=== PATIENT | male | born 1980 | race Caucasian/White ===

== ENCOUNTER 2023-08-10 08:39 | Observation (INO) | payer OTHER, SELFPAY ==
[2023-08-10] VITALS (12 sets, daily range): BP systolic 122–162; BP diastolic 66–102; PULSE 64–82; RESP 12–18; TEMP 36.3–36.8; O2SAT 92–99; BMI 46.2; BMI 48.4
--- NOTE | 2023-08-10 08:45 | EDS_ITS ---
HPI History of Present Illness Chief Complaint: Abd Pain PFSH PFSH Home Medications acetaminophen 500 mg capsule 1,000 mg PO Q6H PRN fever 08/10/23 [History Last Taken 08/10/23] magnesium 250 mg tablet 250 mg PO DAILY 08/10/23 [History Last Taken 08/10/23] multivitamin (Daily Multi-Vitamin tablet) 1 tab PO DAILY 08/10/23 [History Last Taken 08/10/23] Allergy/AdvReac Type Severity Reaction Status Date / Time No Known Allergies Allergy Verified 08/10/23 08:43 Surgical History no surgical history Social History Smoking Status: Unknown if ever smoked EXAM Physical Exam Const Vital Signs: 08/10/23 08:41 08/10/23 11:11 08/10/23 13:19 Temperature 98.1 F 97.5 F L Temperature Source Temporal Temporal Pulse Rate 65 68 Respiratory Rate 15 16 18 Blood Pressure 162/102 H 131/74 H Blood Pressure Mean 122 93 Blood Pressure Source Monitor Blood Pressure Position Semi-Fowlers Blood Pressure Location Right Arm Pulse Ox 99 98 Oxygen Delivery Method Room Air Room Air MDM MDM MDM Narrative Medical decision making narrative: HISTORY OF PRESENT ILLNESS: 43-year-old male here with left side abdominal pain/flank pain that began at 2 AM approximately 7 hours prior to arrival. Notes pain is located in right upper quadrant. Denies history abdominal surgeries. No nausea no vomiting is not worse with food. Denies changes of bowel habits denies change in urinary habits. Denies any cough chest pain or shortness of breath REVIEW OF SYSTEMS: Pertinent positives: Abdominal pain, flank pain Pertinent negatives: Chest pain, shortness of PHYSICAL EXAM: Nursing triage notes reviewed, Vital signs reviewed Constitutional: please see mdm HENT: MMM Eyes: Pupils equal round and reactive to light, Extraocular muscles intact Neck: No stridor, no JVD, full neck ROM Lungs: Clear to auscultation, No wheezing or rales. No increased work of breathing, no conversational dyspnea, no accessory muscle use, no nasal flaring. No respiratory distress noted Heart: Regular rate and rhythm, No murmurs, No rubs and No gallops, 2+ distal pulses (radial, femoral, posterior tibial) in all extremities Abdomen: Soft, right upper quadrant tenderness, positive Menjivar sign but no rigidity, rebound or guarding, no obvious peritoneal signs, no palpable pulsatile abdominal masses, no auscultated abdominal bruit : No CVAT Extremities: No edema Neuro: No focal neurological deficits, cranial nerves II through XII intact, 5/5 strength in all extremities. Intact sensation to light touch in all extremities, 2+ reflexes bilateral patella tendons. Normal gait. No ataxia. Skin: No rash or lesions noted MEDICAL DECISION MAKING: Chief Complaint: Abdominal pain, flank pain External records reviewed: Imaging reviewed: No recent advanced imaging of the abdomen or pelvis Factors affecting care: none Social determinants of health: none History obtained from others: none Consults: General surgery [facility] Narrative: Patient was hemodynamically stable, afebrile, nontoxic-appearing. Exam with right upper quadrant TTP, possible Menjivar sign. Concern for gallbladder etiology I considered the following differential diagnosis: Acute cholecystitis nephrolithiasis, pyelonephritis, AAA, diverticulitis ALL IMAGES (IF OBTAINED) HAVE BEEN PERSONALLY REVIEWED AND INTERPRETED BY MYSELF. CBC with leukocytosis suggestive of systemic inflammation, no significant anemia or thrombocytopenia noted BMP without evidence of significant electrolyte abnormalities, no anion gap, no acute kidney injury. LFTs show no evidence of hepatobiliary pathology. Lipase is wnl indicating no pancreatic inflammation. Urinalysis shows no evidence of urinary inflammation suggestive of UTI Right upper quadrant ultrasound shows evidence of large gallstone in the biliary tree. I consulted general surgery spoke to Dr. Ritter who recommended emergent surgery he further recommended given Zosyn, obtaining x-ray EKG for preop clearance.. The patient and/or family, caregivers express understanding. The patient and/or family, caregivers agrees with the plan. Shared decision making: I will have a discussion with the patient and or visitors regarding risk/ benefits of further testing or admission. They will be made aware of of the risk/benefits inherent in this decision they will be given the opportunity to voice understanding. Total critical care time today provided was at least 0 minutes. This excludes separately billable procedures. Critical care time (if documented) is secondary to the patient having high probability of clinically significant/life threatening deterioration in the patient's condition which required my urgent intervention. Impression: 1. Right upper quadrant 2. Leukocytosis 3. Cholelithiasis Dispo: Admit to the OR Lab Data Labs: Laboratory Results - last 24 hr 08/10/23 08/10/23 09:23 11:15 WBC 12.4 H RBC 5.70 Hgb 15.3 Hct 48.7 MCV 85.4 MCH 26.8 L MCHC 31.4 L RDW Std Deviation 40.2 RDW Coeff of [place] 13.1 Plt Count 238 MPV 9.2 Immature Gran % (Auto) 0.400 Neut % (Auto) 85.8 H Lymph % (Auto) 9.7 L [place] % (Auto) 3.7 Eos % (Auto) 0.2 Baso % (Auto) 0.2 Absolute Neuts (auto) 10.6 H Absolute Lymphs (auto) 1.20 Nucleated RBC % 0 Sodium 137 Potassium 4.6 Chloride 105 Carbon Dioxide 25.0 Anion Gap 7 BUN 17 Creatinine 0.89 Estim Creat Clear Calc 126.99 Est GFR (MDRD) Af Amer 121 Est GFR (MDRD) Non-Af 100 BUN/Creatinine Ratio 19.1 Glucose 119 H Calcium 9.2 Total Bilirubin 0.40 Direct Bilirubin 0.12 AST 27 ALT 35 Alkaline Phosphatase 82 Total Protein 7.9 Albumin 3.6 Globulin 4.3 H Lipase 20 Urine Color Yellow Urine Clarity Clear Urine pH 6.5 Ur Specific [place] 1.015 Urine Protein Negative Urine Glucose (UA) Normal Urine Ketones Negative Urine Occult Blood Negative Urine Nitrite Negative Urine Bilirubin Negative Urine Urobilinogen Normal Ur Leukocyte Esterase Negative Urine RBC 0 SEEN Urine WBC 0 SEEN Ur Squamous Epith Cells 0-5 SEEN Urine Bacteria 0 SEEN Urine Mucus 0 SEEN Radiography Diagnostic Testing: Clinical Impression(s) from Imaging Studies Gallbladder Ultrasound 08/10/23 09:08 IMPRESSION: Cholelithiasis. 1. There is a single 2.65 cm moderate size stone in the neck of the gallbladder. No pericholecystic fluid is seen. Nuclear medicine HIDA scan can be obtained to evaluate for acute cholecystitis and ejection fraction. Electronically Signed: Tai Lui MD at 12:02 EST , Discharge Plan Disposition Disposition: Acute Care [facility]
--- NOTE | 2023-08-10 09:08 | US_ITS ---
STUDY: ABDOMINAL ULTRASOUND - RIGHT UPPER QUADRANT REASON FOR VISIT: Male, 43 years old Right upper quadrant abdominal pain TECHNIQUE: Ultrasound evaluation of the right upper quadrant was performed with real-time and static carbajal-scale imaging. TECHNICAL QUALITY: Adequate. COMPARISON: None. FINDINGS: Liver: The liver measures 17.7 cm. There is increased echogenicity consistent with fatty infiltration. The bile ducts are within normal limits. There is hepatic color flow. The direction of portal flow is hepatopetal. There is no demonstrated mass lesion. Gallbladder: Normal distended gallbladder. The gallbladder wall measures 3 mm. There is a single 2.65 cm moderate size stone in the neck of the gallbladder. No pericholecystic fluid is seen. Common Bile Duct (C.B.D.): The common bile duct measures 3 mm. Pancreas: Normal size of the head and body of the pancreas. The tail was not seen. There is normal echogenicity of the pancreas. There is no demonstrated pancreatic mass or cyst. Right Kidney: Normal size of the right kidney. The right kidney measures 12.3 x 6.3 x 5.3 cm. Normal renal cortex. The right cortex measures 2.4 cm. There is no demonstrated renal mass or cyst. There is no right hydronephrosis. US/Gallbladder IMPRESSION: Cholelithiasis. 1. There is a single 2.65 cm moderate size stone in the neck of the gallbladder. No pericholecystic fluid is seen. Nuclear medicine HIDA scan can be obtained to evaluate for acute cholecystitis and ejection fraction. Electronically Signed: Tai Lui MD at 12:02 EST ,
[2023-08-10 09:28] LABS: Absolute Neutrophil Count 10.6 X10^3/uL (2.0-7.7); Basophil# 0.03 X10^3/uL; Basophil% 0.2 % (0-1); Eosinophil# 0.02 X10^3/uL; Eosinophils% 0.2 % (0-5); Hematocrit 48.7 % (40-54); Hemoglobin 15.3 g/dL (13.0-16.5); Lymphocyte % 9.7 % (19-41); Mean Corp Hgb Conc 31.4 g/dL (32-36); Mean Corpuscular Hgb 26.8 pg (27.0-32.0); Mean Corpuscular Volume 85.4 fL (80-94); Mean Platelet Vol. 9.2 fl (6.2-12.0); Monocyte# 0.46 X10^3/uL; Monocyte% 3.7 % (0-10); NRBC Flagged by Analyzer 0 % (0-5); Neutrophil # 10.63 X10^3/uL (2.7-7.7); Neutrophil % 85.8 % (47-70); Platelet Count 238 K/mm3 (150-450); RBC Distribution Width CV 13.1 % (11.6-14.6); RBC Distribution Width SD 40.2 fl (35.1-43.9); White Blood Count 12.4 K/mm3 (4.4-11.0)
[2023-08-10] MEDS: Ketorolac 15 MG/ML Vial IV (09:38)
[2023-08-10] MEDS: 0.9% Normal Saline (1000mL) 1,000 ML 999 ML IV (09:38)
[2023-08-10] MEDS: Morphine 4 MG/ML Syringe IV (09:38)
[2023-08-10] MEDS: Ondansetron 4 MG/2 ML Vial IV (09:38)
[2023-08-10 09:44] LABS: AST(SGOT) 27 U/L (15-37); Alanine Aminotransfer ALT/SGPT 35 U/L (16-61); Albumin, Serum 3.6 g/dL (3.2-5.0); Alkaline Phosphatase 82 U/L (45-117); Anion Gap 7 (5-15); BUN 17 mg/dL (7-18); BUN/Creat Ratio 19.1 RATIO (10-20); Bilirubin, Direct 0.12 mg/dL (0.00-0.30); Calcium,Total 9.2 mg/dL (8.5-10.1); Chloride 105 mmol/L (98-107); Creatinine, Serum 0.89 mg/dL (0.70-1.30); EST Glomerular Filtration Rate 100 mL/min (>60); Est Glom Filt Rate - Afr Amer 121 mL/min (>60); Estimated Creatinine Clearance 126.99 ml/min; Globulin 4.3 g/dL (2.2-4.2); Glucose 119 mg/dL (74-106); Lipase 20 U/L (13-75); Potassium 4.6 mmol/L (3.5-5.1); Protein, Total 7.9 g/dL (6.4-8.2); Sodium Level 137 mmol/L (136-145)
[2023-08-10 11:17] LABS: Bacteria 0 SEEN /hpf (None Seen); Mucous, Urine 0 SEEN /hpf (<or=2+); Red Blood Cells-Urine 0 SEEN /hpf (0-5); White Blood Cells 0 SEEN /hpf (0-5)
[2023-08-10 11:20] LABS: Glucose, Dipstick Normal (Normal); Ketone-Dipstick Negative (Negative); Leukocyte Esterase-Dipstick Negative /ul (Negative); Nitrite-Dipstick Negative (Negative); Occult Blood-Urine Negative /ul (Negative); Protein-Dipstick Negative (Negative); Specific Gravity, Urine 1.015 (1.002-1.030); Urine Bilirubin Dipstick Negative (Negative); Urine Urobilinogen Normal (Normal); Urine pH 6.5 (5.0 - 8.0)
[2023-08-10 11:26] LABS: Color, Urine Yellow (Yellow); Urine Clarity Clear (Clear)
[2023-08-10 11:27] LABS: Squamous Epithelial Cells - UA 0-5 SEEN /hpf (0-5)
--- NOTE | 2023-08-10 13:32 | HP.PCM.SX_ITS ---
HPI - General HPI Narrative ROSARIO BARRETT, is a 43 M who presents with abdominal pain. Patient reports his abdominal pain started at 2 AM this morning and woke him up from sleep. He says he did have nausea but no vomiting. He denies fevers or chills. Says the pain is in the right upper quadrant and it started in the back and is moved forward. PFSH Home Medications acetaminophen 500 mg capsule 1,000 mg PO Q6H PRN fever 08/10/23 [History Last Taken 08/10/23] magnesium 250 mg tablet 250 mg PO DAILY 08/10/23 [History Last Taken 08/10/23] multivitamin (Daily Multi-Vitamin tablet) 1 tab PO DAILY 08/10/23 [History Last Taken 08/10/23] Allergy/AdvReac Type Severity Reaction Status Date / Time No Known Allergies Allergy Verified 08/10/23 08:43 Surgical History no surgical history Social History Smoking Status: Unknown if ever smoked ROS Constitutional Constitutional: Denies anorexia, chills, fatigue or fever(s) Eyes Eyes: Denies blurry vision Cardiovascular Cardiovascular: Denies chest pain at rest Respiratory/Chest Respiratory/Chest: Denies cough or dyspnea Gastrointestinal Gastrointestinal: Reports abdominal pain and nausea; Denies change in bowel hab its, rectal bleeding or vomiting Genitourinary Genitourinary: Denies change in urinary stream Musculoskeletal Musculoskeletal: Denies abnormal gait Integumentary Integumentary: Denies jaundice or new lesions Neurologic Neurologic: Denies abnormal gait Psychiatric Psychiatric: Denies depression Endocrine Endocrinology: Denies flushing Hematologic/Lymphatic Hematologic/Lymphatic: Denies easy bleeding Vital Signs Vital Signs Vital Signs: 08/10/23 08:41 08/10/23 11:11 08/10/23 13:19 Temperature 98.1 F 97.5 F L Temperature Source Temporal Temporal Pulse Rate 65 68 Respiratory Rate 15 16 18 Blood Pressure 162/102 H 131/74 H Blood Pressure Mean 122 93 Blood Pressure Source Monitor Blood Pressure Position Semi-Fowlers Blood Pressure Location Right Arm Pulse Ox 99 98 Oxygen Delivery Method Room Air Room Air Weight Weight: 360 lb Body Mass Index (BMI) 46.2 Physical Exam Const oriented x3 and no apparent distress Resp normal respiratory effort Cardio regular rate and regular rhythm GI soft to palpation Palpation: tender RUQ external exam normal Extremity normal to inspection Results Lab / Micro Data 08/10/23 09:23 08/10/23 09:23 Labs: Laboratory Results - last 24 hr 08/10/23 09:23: WBC 12.4 H, RBC 5.70, Hgb 15.3, Hct 48.7, MCV 85.4, MCH 26.8 L, MCHC 31.4 L, RDW Std Deviation 40.2, RDW Coeff of [place] 13.1, Plt Count 238, MPV 9.2, Immature Gran % (Auto) 0.400, Neut % (Auto) 85.8 H, Lymph % (Auto) 9.7 L, [place] % (Auto) 3.7, Eos % (Auto) 0.2, Baso % (Auto) 0.2, Absolute Neuts (auto) 10.6 H, Absolute Lymphs (auto) 1.20, Nucleated RBC % 0, Sodium 137, Potassium 4.6, Chloride 105, Carbon Dioxide 25.0, Anion Gap 7, BUN 17, Creatinine 0.89, Estim Creat Clear Calc 126.99, Est GFR (MDRD) Af Amer 121, Est GFR (MDRD) Non-Af 100, BUN/Creatinine Ratio 19.1, Glucose 119 H, Calcium 9.2, Total Bilirubin 0.40, Direct Bilirubin 0.12, AST 27, ALT 35, Alkaline Phosphatase 82, Total Protein 7.9, Albumin 3.6, Globulin 4.3 H, Lipase 20 08/10/23 11:15: Urine Color Yellow, Urine Clarity Clear, Urine pH 6.5, Ur Specific [place] 1.015, Urine Protein Negative, Urine Glucose (UA) Normal, Urine Ketones Negative, Urine Occult Blood Negative, Urine Nitrite Negative, Urine Bilirubin Negative, Urine Urobilinogen Normal, Ur Leukocyte Esterase Negative, Urine RBC 0 SEEN, Urine WBC 0 SEEN, Ur Squamous Epith Cells 0-5 SEEN, Urine Bacteria 0 SEEN, Urine Mucus 0 SEEN Imagaing Radiology Impression Gallbladder Ultrasound 08/10/23 09:08 IMPRESSION: Cholelithiasis. 1. There is a single 2.65 cm moderate size stone in the neck of the gallbladder. No pericholecystic fluid is seen. Nuclear medicine HIDA scan can be obtained to evaluate for acute cholecystitis and ejection fraction. Electronically Signed: Tai Lui MD at 12:02 EST , Assessment & Plan Assessment/Plan (1) Acute cholecystitis due to biliary calculus: PLAN: Patient has early acute cholecystitis due to a very large stone in the gallbladder. Patient still having right upper quadrant pain and he did have elevated white count with left shift. Patient's ultrasound shows a 2.4 cm gallstone in the neck of the gallbladder. I discussed laparoscopic cholecystectomy with the patient in detail. I discussed the procedure in detail with the patient. I discussed the risks, benefits, and alternatives of the procedure. I discussed the risks including but not limited to bleeding, infection, injury to surrounding organs such as the liver, bile duct, bowels. I did discuss the possibility of having to convert to an open procedure as well as the possibility that if any injuries occurred this may necessitate further surgery at a tertiary care center. Patient will be given antibiotics in the emergency room and I will take the patient's afternoon for surgery. Derrek Ritter MD Pager: [facility] [address] [place] [address], [address] [place] [address] Office:
[2023-08-10] MEDS: Piperacil/Tazobactam 4.5 GM in 0.9% Normal Saline (100mL MB+) 100 ML IV (13:47)
--- NOTE | 2023-08-10 13:55 | RAD_ITS ---
STUDY: X-RAY CHEST REASON FOR EXAM: Male, 43 years old. pre op TECHNIQUE: 2 AP portable view of the chest. COMPARISON: None. FINDINGS: The lungs are clear and expanded. There is no demonstrated pleural abnormality. Normal size heart. Normal mediastinum and melvin. Normal visualized pulmonary arteries. Normal visualized aortic arch and descending thoracic aorta. Normal visualized thoracic spine. Normal visualized ribs, clavicles, and shoulders. There is no demonstrated abnormality of the visualized soft tissue structures of the upper abdomen. RAD/Chest 1 View (Portable) IMPRESSION: Normal x-ray examination of the chest. Electronically Signed: Tai Lui MD at 14:19 EST ,
--- NOTE | 2023-08-10 15:30 | GALL_PTH ---
PATIENT: ROSARIO BARRETT LOC: MS3 U#:[id number] AGE/SX: 43/M [place] [facility] [place]: Dr. Derrek Ritter MD : 1980 BED: 1 DIS: 08/11/2023 SPEC #: [id number] RECD: 08/11/23 08:33 STATUS: BECCA GISSELLE #: [id number] KRISTI: 08/10/23 15:[address]: Derrek Ritter DEPT: SURGICAL PATHOLOGY RECD BY: Kanchan Briones ENTERED: 08/11/23 08:33 SP TYPE: DAVID JUAREZ DR: No Primary Care Phys Tissues: Gallbladder, NOS Procedures: Surgery Specimen Level III HEADER OPERATION: Laparoscopic cholecystectomy with IOC PRE-OP DIAGNOSIS: Acute cholecystitis due to biliary calculus TISSUE SUBMITTED: Gallbladder MICROSCOPIC DIAGNOSIS Gallbladder, cholecystectomy: Cholesterolosis, acute and chronic cholecystitis and cholelithiasis. AM:reema 08/12/2023 MICROSCOPIC DESCRIPTION Slides are reviewed. GROSS DESCRIPTION Received is one container labeled with the patient's name and designated gallbladder. The specimen consists of a distended gallbladder measuring 10.5 x 4.5 x 4.2 cm. The external surface is smooth and glistening. Focally, it is granular, hemorrhagic and contains cautery artifact. The lumen of the gallbladder contains yellow-green mucoid bile and multiple yellow, chalky, mulberry-shaped calculi ranging in size from <0.1 to 3.0 cm in greatest dimension. The mucosa is bile-stained and without any mass lesions. The gallbladder wall averages 0.3 cm in thickness and is free of mass lesions. Grader Meat sections of the gallbladder and the cystic duct at margin of resection are submitted in one cassette. / AM:reema 08/11/2023 TC:2 CPT: 68361
--- NOTE | 2023-08-10 15:45 | RAD_ITS ---
INDICATION: lap steven with IOC EXAMINATION/TECHNIQUE: 3 intraoperative cine clips are presented for evaluation. Total Fluoroscopic Time: 49 seconds AND number of Fluoroscopic Images: 3 clips OR Radiation dosage index: 2.51 mGym2 COMPARISON: No relevant prior comparison study available FINDINGS: Contrast is seen extending to the gallbladder fossa. Contrast fills the cystic duct as well as the common bile duct. Retrograde passage of contrast into the hepatic ducts. No filling defects are identified. There is no biliary ductal dilatation. There is free passage into the duodenum. RAD/Cholangiogram/ O R,Initial IMPRESSION: Negative intraoperative cholangiogram. Electronically Signed: Anthony Bearden MD at 16:59 EST ,
[2023-08-10] MEDS: Bupivacaine 0.25% 30 ML Vial (16:44)
--- NOTE | 2023-08-10 17:03 | OP.PCM_ITS ---
Report of Operation Date of Procedure: 08/10/23 Pre-Operative Diagnosis: Acute cholecystitis Post-Operative Diagnosis: acute cholecystitis Surgery/Procedure Performed:: Laparoscopic Cholecystectomy with cholangiogram Description of Surgical Findings:: Inflamed gallbladder. Cystic duct stone which was able to be milked back and then a normal cholangiogram was obtained Type of Anesthesia: General/Regional Specimen's removed: Gallbladder Estimated Blood Loss (mL): 20 Description of Procedure: After obtaining informed consent patient was brought back to the operating room. General anesthesia was induced. The abdomen was prepped and draped in usual sterile fashion. A small midline incision was made superior to the umbilicus and deepened to the level of fascia. Using Visiport technique the abdomen was entered using a 5 mm port. The abdomen was inflated to 15 mmHg. Next a camera was introduced into the abdomen and the abdomen was inspected. Next under direct visualization three 5-mm ports were placed one subxiphoid and 2 subcostal. Next the gallbladder was elevated and retracted toward the right shoulder. The peritoneum was stripped from the gallbladder. The infundibulum was located and retracted laterally. Next the triangle of Calot was dissected and the cystic duct and cystic artery were identified. Cholangiograms were performed. The Bonilla clamp was used to clamp across the infundibulum and the catheter needle was inserted into the gallbladder. Under fluoroscopy contrast was instilled in to the gallbladder and the common duct, cystic duct as well as proximal hepatic ducts were identified. There was good filling of the duodenum. There were no filling defects noted in the common bile duct. The clamp was removed as well as the needle and the infundibulum was grasped once more. Three hemolock clips were placed across the cystic duct. The cystic duct was then divided leaving 2 clips on the stump. The cystic artery was clipped and divided in the same fashion. The hook cautery was then used to take the gallbladder off of the gallbladder bed. Hemostasis was obtained. Gallbladder fossa was irrigated and no active bleeding or bile leakage was noted. Next the camera was introduced in the subxiphoid port. An Endopouch bag was placed through the umbilical port and the gallbladder was placed into it. The gallbladder was then removed through the umbilical incision. The camera was then reinserted through the umbilical port. The gallbladder fossa was inspected once more and noted to be hemostatic with no leaking bile. The abdomen was suctioned dry. The 5 mm ports were removed under direct visualization. The umbilical port was then removed and the air was removed from the abdomen. Next using an 0 Vicryl suture the umbilical fascia was closed in a [id number] fashion. The umbilical port site was irrigated local anesthetic was administered to all the incisions. All the incisions were closed with interrupted subcuticular 4-0 Monocryl sutures followed by Steri-Strips and dressings. The patient was awoken and taken to PACU in stable condition. Admit VTE Documentation VTE Mechan Device Prophylaxis: SCD's
[2023-08-10] MEDS: Lactated Ringers 1,000 ML 15 ML IV (17:07)
[2023-08-10] MEDS: 0.9% Normal Saline (1000mL) 1,000 ML 60 ML IV (18:31)
[2023-08-10] MEDS: Acetaminophen 325 MG Tablet 650 MG PO (18:46)
[2023-08-10] MEDS: oxyCODONE 5 MG Tablet PO (19:46)
[2023-08-11 03:05] VITALS: BP 115/68; PULSE 101; RESP 18; TEMP 36.7; O2SAT 92
[2023-08-11 05:44] VITALS: BP 113/68; PULSE 98; RESP 18; TEMP 36.7; O2SAT 96
[2023-08-11] MEDS: oxyCODONE 5 MG Tablet PO ×2 (05:51→10:52)
[2023-08-11] MEDS: Acetaminophen 325 MG Tablet 650 MG PO ×2 (05:51→10:52)
[2023-08-11 07:50] LABS: Absolute Neutrophil Count 9.4 X10^3/uL (2.0-7.7); Basophil# 0.02 X10^3/uL; Basophil% 0.2 % (0-1); Eosinophil# 0.01 X10^3/uL; Eosinophils% 0.1 % (0-5); Hematocrit 45.7 % (40-54); Hemoglobin 14.5 g/dL (13.0-16.5); Lymphocyte % 17.6 % (19-41); Mean Corp Hgb Conc 31.7 g/dL (32-36); Mean Corpuscular Hgb 26.8 pg (27.0-32.0); Mean Corpuscular Volume 84.5 fL (80-94); Mean Platelet Vol. 9.3 fl (6.2-12.0); Monocyte# 0.82 X10^3/uL; Monocyte% 6.6 % (0-10); NRBC Flagged by Analyzer 0 % (0-5); Neutrophil % 75.1 % (47-70); Platelet Count 308 K/mm3 (150-450); RBC Distribution Width CV 13.3 % (11.6-14.6); RBC Distribution Width SD 40.5 fl (35.1-43.9); Red Blood Count 5.41 M/mm3 (4.6-6.2); White Blood Count 12.5 K/mm3 (4.4-11.0)
[2023-08-11 08:19] LABS: ALB/GLOB Ratio 0.9 RATIO (0.9-2.4); AST(SGOT) 25 U/L (15-37); Alanine Aminotransfer ALT/SGPT 46 U/L (16-61); Albumin, Serum 3.6 g/dL (3.2-5.0); Alkaline Phosphatase 88 U/L (45-117); Anion Gap 6 (5-15); BUN 10 mg/dL (7-18); BUN/Creat Ratio 13.4 RATIO (10-20); Calcium,Total 8.9 mg/dL (8.5-10.1); Chloride 104 mmol/L (98-107); Creatinine, Serum 0.75 mg/dL (0.70-1.30); EST Glomerular Filtration Rate 122 mL/min (>60); Est Glom Filt Rate - Afr Amer 148 mL/min (>60); Globulin 3.9 g/dL (2.2-4.2); Glucose 119 mg/dL (74-106); Protein, Total 7.5 g/dL (6.4-8.2); Sodium Level 137 mmol/L (136-145)
--- NOTE | 2023-08-11 08:34 | DCINST_ITS ---
Discharge Instructions Procedure Gallbladder Diet Discharge Diet: Light diet - advance as tolerated Activity Discharge Activity: May Not Drive (for 2-3 days or while taking narcotic pain medications.) and - (Do not drive, work heavy equipment or sign legal documents for 24 hours.) May shower in (days): 1 Lifting Restrictions: 20 lbs for 2 weeks Additional Activity Instructions:: Pain medication may cause nausea. You should typically eat light foods as you take your pain medications. Pain medication may also cause constipation. If this is a problem for you, please discuss with your doctor. Dressing / Incision Call your doctor if your incision/area has: Continuous Slow Oozing, Sudden Increased Bleeding, Increased Pain/ Swelling, Increased Redness and Foul Smelling Discharge Call your doctor if you observe: Fever of 101 or Higher Suture Line Care: Avoid Pulling/Pushing and Avoid Pinching/Bending Remove Dressing in: 2 days Additional Dressing/Incision Instructions:: Leave operative bandaids on for 2 days. When you remove dressing, leave Steri-Strips on until your follow-up appointment, or until the Steri-Strips fall off on their own. Follow Up Care Please Follow Up With: Derrek Ritter MD When: Please call to schedule 2 week follow up appointment. [phone] Test Results: Test results from this visit will be discussed in further detail at your follow- up appointment, if applicable. Discharge Plan Admission Admit Date/Time: 08/10/23 17:01 Attending Provider: Derrek Ritter Primary Care Provider: Shilpa Physician,Freida Primary Discharge Orders/Prescriptions Prescriptions: New oxycodone 5 mg Tablet 5 - 10 mg PO Q4H PRN PRN (Reason: Pain Score 4-10) 5 Days Qty: 20 0RF Continued multivitamin [Daily Multi-Vitamin] Tablet 1 tab PO DAILY magnesium 250 mg tablet 250 mg PO DAILY acetaminophen 500 mg capsule 1,000 mg PO Q6H PRN (Reason: fever) Referrals / Follow Up: Care Physician,Freida Primary [Primary Care Provider] - Disposition Disposition (needs filled in before D/C Order can be placed): Home, Self Care
[2023-08-11 08:55] VITALS: BP 148/102; PULSE 85; RESP 16; TEMP 37.3; O2SAT 96
[2023-08-11 11:15] VITALS: BP 116/80; PULSE 93; RESP 16; TEMP 36.7; O2SAT 95
--- NOTE | 2023-08-11 11:18 | PHA.DC_ITS ---
Pharmacy [facility] Service has performed discharge medication reconciliation and counseling for this patient. 1. OXYCODONE 5-10MG PO Q4H PRN PAIN 4-10 The patient's discharge medication list was reviewed for discrepancies and discrepancies were resolved. The patient was counseled on the following discharge medications and changes in medications for homegoing were reviewed. The Reason for Use, instructions for use, and potential side effects were reviewed for all new medications. The patient's questions regarding all of their medications were answered. The patient was able to verbally demonstrate an understanding of their discharge medications. Patient counseled by pharmacy order entry technicianSonny. Medications at Discharge Home Medications acetaminophen 500 mg capsule 1,000 mg PO Q6H PRN fever 08/10/23 magnesium 250 mg tablet 250 mg PO DAILY 08/10/23 multivitamin (Daily Multi-Vitamin tablet) 1 tab PO DAILY 08/10/23 oxycodone 5 mg tablet 5 - 10 mg (1 - 2 x 5 mg) PO Q4H PRN PRN Pain Score 4-10 5 days #20 tabs 08/11/23
== END 2023-08-11 11:22 | disposition home or self-care (01) ==
LOC: ED 13:40 → SDC 14:35 → ACINP 14:35 → SDC 17:08 → MS3 17:08
PROVIDERS: Admitting Provider Surgery; Emergency Provider Emergency Medicine; Visit Provider Surgery
PROC: (CPT 47610; principal; 2023-08-10 15:10)
DX: K80.12 Calculus of gallbladder with acute and chronic cholecystitis without obstruction (principal)
CPT/HCPCS: 47563; 00790; 36415; 71045; 74300; 76000; 76705; 80048; 80053; 80076; 81001; 83690; 85025; 88304; 93005; 94668; 96361; 96374; 96375; 97802; 99221; 99284; J7030; J7120; A4216; G0378; J2405

== ENCOUNTER → 2023-09-24 | Outpatient (CLI) | payer OTHER, SELFPAY ==
--- NOTE | 2023-09-24 16:06 | RAD_ITS ---
STUDY: X-RAY - LEFT FOOT CLINICAL: Male, 43 years old. PAIN TECHNIQUE: 3 view(s) of the foot. COMPARISON: None. FINDINGS: There is a plantar calcaneal spur. Normal visualized subtalar articulation. Mild degenerative arthrosis of the upper aspect of the thumb talonavicular, calcaneocuboid, tarsal and tarsometatarsal articulations. Normal metatarsi. There is degenerative arthrosis of the metatarsophalangeal joint of the hallux . Normal tibial and fibular sesamoid bones. Normal interphalangeal joint of the great toe. Normal phalanges of the great toe. Normal second through fifth metatarsophalangeal joints. Normal interphalangeal joints and phalanges of the lesser toes. Mild soft tissue swelling at the distal calf and ankle. There is no demonstrated fracture. RAD/Foot min 3 Views IMPRESSION: Degenerative disease with no acute fracture or subluxation. Electronically Signed: Lilia Lao MD at 17:14 EST ,
--- OUTSIDE RECORDS SUMMARY | 2023-09-24 18:23 | XMS RPT_ITS | CCD ---
Author Name Unknown Address 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 Name Role Phone Unavailable Primary Care Provider Unavailclaire e NORMA MCKOY Referring Unavailable NORMA MCKOY Attending Unavailable Problems Problem Classification Problem Date Documented Da te Episodic/Chronic Other male genital disorders (1 source) Scrotal mass; Translations: [Other specified disorders of the male genital organs] Episodic Other male genital disorders (1 source) Other specified disorders of the male genital organs; Translations: [Scrotal mass] Onset: 02-24-2023 Episodic Results Test Name Value Interpretation Reference Range Facil ity Vital Signs Date Time Vital Sign Value Performing Clinician Graysoni litmarco 02-20-2023 08:27-0400 Body height 190.5 cm Norma Mckoy PA-C Work Phone: [facility] 02-20-2023 08:27-0400 Body temperature 97.5 [degF] Norma Mckoy PA-C Work Phone: [facility] 02-20-2023 08:27-0400 Body weight 163.29 kg Norma Mckoy PA-C Work Phone: [facility] 02-20-2023 08:27-0400 Diastolic blood pressure 74 mm[Hg] Norma Mckoy PA-C Work Phone: [facility] 02-20-2023 08:27-0400 Heart rate 96 /min Norma Mckoy PA-C Work Phone: [facility] 02-20-2023 08:27-0400 Respiratory rate 14 /min Norma Mckoy PA-C Work Phone: [facility] 02-20-2023 08:27-0400 SaO2% (BldA) [Mass fraction] 98 % Norma Mckoy PA-C Work Phone: [facility] 02-20-2023 08:27-0400 Systolic blood pressure 130 mm[Hg] Norma Mckoy PA-C Work Phone: [facility] Encounters Encounter Date Encounter Type Care Provider Facility Start: 02-24-2023 End: 02-24-2023 ambulatory NORMA MCKOY Facility:[facility] Start: 02-20-2023 End: 02-21-2023 ambulatory NORMA MCKOY Facility:[facility] Start: 02-20-2023 End: 02-20-2023 Patient encounter procedure Norma Mckoy PA-C Work Phone: Urology Procedures Date Procedure Procedure Detail Performing Clinician Start: 02-20-2023 Urnls dip stick/tabl et rgnt auto w/o microscopy Norma Mckoy PA-C Work Phone: Plan of Treatment Date Care Activity Detail Author Start: 05-22-2023 Influenza vaccination INFLUENZ A (Season Ended) [facility] Start: 02-20-2023 End: 03-21-2024 Us scrotum & contents US SCROTUM AND CONTENTS Radiology Routine Scrotal mass Expected: 02/20/2023 (Approximate), Expires: 03/21/2024 [facility] Work Phone: Payers Date Payer Category Payer Unknown NATALIAHUMBERTO BRAY PPO [id number] 2013-Present [phone] [facility] [id number] [place] [address] PPO [id number] 2013 Unknown [id number] Social History Date Type Detail Facility Start: 02-20-2023 Tobacco smoking stat us NDIS Never smoked tobacco [facility] Start: 05-14-2017 Alcohol intake Not Asked Alfonzo georges [facility] Start: 1980 Sex Assigned At Not on file C [facility] Start: 02-20-2023 Tobacco use and exposure Melissa r smokeless tobacco user [facility] Start: 02-20-2023 Alcohol intake Ex-drinker (finding) [facility] Progress note 02-24-2023 Note Date & Type Note Facility 02-24-2023 Note HNO ID: [id number] Author: Zee Cowan RDMS Service: ? Author Type: Clinic Business Manager Type: Progress Notes Filed: 02/24/2023 10:10 AM Note Text: Radiology Service Progress Note PATIENT NAME: Rosario Barrett DATE OF SERVICE: February 24, 2023 TIME: 10:10 AM PATIENT IDENTITY VERIFICATION COMPLETED USING TWO (2) IDENTIFIERS: Name and Date of confirmed by patient verbally. FALL SCREENING: Has the patient had 2 falls in the last year or 1 fall with injury or currently using an Ambulatory Assistive Device (Walker, Cane, Wheelchair, Crutches, etc.)? No PATIENT GENDER DATA: Male PATIENT RELEVANT IMPLANT DATA REVIEWED: Not Applicable RADIOLOGY DEPARTMENT: Ultrasound PERIPHERAL IV DATA: Not applicable SIGNED BY: Zee Cowan RDMS RVT February 24, 2023 10:10 AM [facility] Progress note 02-20-2023 Note Date & Type Note Facility 02-20-2023 Note HNO ID: [id number] Author: Norma Mckoy PA-C Service: ? Author Type: Physician Admissions Clinician Type: Progress Notes Filed: 02/20/2023 9:00 AM Note Text: [facility] NEW PATIENT CLINIC NOTE SERVICE DATE: 02/20/2023 SERVICE TIME: 8:37 AM NAME: Rosario Barrett CHIEF COMPLAINT: Scrotum Mass HISTORY OF PRESENT ILLNESS: Rosario Barrett is a 42 year old male presenting with scrotum mass The patient reports the mass has been there for about 10 -12 yrs and started about the size of a pea, and now is about 3 cm Mass is not associated with either testicle and is mobile , no pain and no erythema But since its enlarged he wanted to have it examined LUTS: None Other symptoms: LABS: No results found for: TESTOST No results found for: TESTFREE No results found for: PSA No results found for: HCT No results found for: PSA No results found for: CREAT . MEDICATIONS: No prescriptions on file. PAST MEDICAL HISTORY: History reviewed. No pertinent past medical history. PAST SURGICAL HISTORY: History reviewed. No pertinent surgical history. FAMILY HISTORY: No family history on file. SOCIAL HISTORY: Social Connections: Not on file REVIEW OF SYSTEMS: GENERAL: No fever, chills, weight loss, or fatigue. ENMT: Negative CARDIOVASCULAR:NO CHEST PAIN, PALPITATIONS, ANKLE EDEMA RESPIRATORY: No chronic cough, wheezing, dyspnea, hemoptysis. GENITOURINARY: SEE HPI MUSCULOSKELETAL:NO CHRONIC BACK PAIN, ARTHRITIS, CHRONIC NECK PAIN SKIN: NO VARICOSE VEINS, RASH, ABNORMAL ITCHING HEME/LYMPH/IMMUNE:Negative for prolonged bleeding, bruising easily or swollen nodes NEUROLOGICAL: NO HEADACHES, NUMBNESS, SEIZURES, STROKE DIABETES: no All other systems reviewed and are negative PHYSICAL EXAMINATION: Blood pressure 130/74, pulse 96, temperature 36.4 ?C (97.5 ?F), temperature source Temporal, resp. rate 14, height 190.5 cm (6' 3 ), weight (!) 163.3 kg (360 lb), SpO2 98 %. GENERAL: WNL nutrition, no deformities, healthy appearing NEURO: Awake, alert and oriented x 3 and Normal gait PSYCH: No signs of depression, anxiety, or agitation ENMT (Ear, Nose, Mouth, Throat): No masses, adenopathy, icterus. Thyroid nonpalpable RESP: NL effort, no retractions or purse-lip breathing. CV: No extremity swelling, varices, edema, pallor, erythema GASTROINTESTINAL: Soft, nontender, nondistended, no masses. HERNIAS: None SKIN: No rash, lesions No palpable lymphadenopathy MUSCULOSKELETAL: Extremities normal. No deformities, edema, clubbing or skin discoloration. GENITOURINARY: MALE EXAM: 3 cm scrotal mass mobile and not infectious appearing Epididymis AND testes: normal size, position, without masses Urethra AND meatus: normal size AND position w/o lesion or discharge Penis: circumcised, w/o plaques, lesions, masses, or deformities. PROBLEM LIST REVIEW: Yes LABS: Results for orders placed or performed in visit on 02/20/23 UA DIP, URINE (POC) Result Value Ref Range GLUCOSE UA (POCT) Negative Negative mg/dL BILIRUBIN UA (POCT) Negative Negative KETONE UA (POCT) Negative Negative mg/dL SPECIFIC GRAVITY UA (POCT) 1.015 1.005 - 1.030 HEMOGLOBIN/BLOOD UA (POCT) Negative Negative PH UA (POCT) 7.0 4.5 - 8.0 PROTEIN UA (POCT) Negative Negative mg/dL UROBILINOGEN UA (POCT) 0.2 Normal E.U./dL NITRITE UA (POCT) Negative Negative LEUKOCYTES UA (POCT) Negative Negative COLOR UA (POCT) Yellow CLARITY UA (POCT) Clear PROCEDURES: IMAGING: Scrotum US - Pending IMPRESSION/PLAN: 42 year old male with 1. Scrotal mass - ICD9: 608.89, ICD10: N50.89 > 3 cm solid scrotum mass x 10 yrs with original size pea like 10 yrs ago > Scrotum US I spent a total of 30 minutes on the date of the service which included preparing to see the patient, face to face patient care, completing clinical documentation, obtaining and/or reviewing separately obtained history, performing a medically appropriate examination, counseling and educating the patient/family/caregiver, ordering medications, tests, or procedures, and care coordination. AUDREY Rivers MT, PA-C [facility] Progress note 02-20-2023 Note Date & Type Note Facility 02-20-2023 Note HNO ID: [id number] Author: Radha Delgado LPN Service: ? Author Type: ? Type: Progress Notes Filed: 02/20/2023 9:00 AM Note Text: Verified name and date of . CC Post Void Residual HPI: Rosario Barrett is a 42 year old male. The patient is here now for an appointment with AUDREY Rivers MT, PA-COV. Procedure: Explained procedure to patient and verbalizes understanding. Performed a PVR. Patient urinated and instructed to empty bladder as much as possible just prior to having PVR done using bladder ultrasound scanner. Results of scan: 0 mL The patient tolerated the procedure well. Plan: Appointment with Norma. [facility] Instructions 02-20-2023 Patient Instructions Note Date & Type Note Facility 02-20-2023 Instructions Norma Mckoy PA-C - 02/20/2023 8:47 AM EDT > Scrotum US - Scrotum Mass documented in this encounter [facility] History of Present illness Narrative 02-20-2023 Norma Mckoy PA-C - 02/20/2023 8:36 AM EDTRadha Delgado LPN - 02/20/2023 8:23 AM EDT Note Date & Type Note Facility 02-20-2023 History of Presen t illness Narrative Images from the original note were not included. [facility] NEW PATIENT CLINIC NOTE SERVICE DATE: 02/20/2023 SERVICE TIME: 8:37 AM NAME: Rosario Barrett CHIEF COMPLAINT: Scrotum Mass HISTORY OF PRESENT ILLNESS: Rosario Barrett is a 42 year old male presenting with scrotum mass The patient reports the mass has been there for about 10 -12 yrs and started about the size of a pea, and now is about 3 cm Mass is not associated with either testicle and is mobile , no pain and no erythema But since its enlarged he wanted to have it examined LUTS: None Other symptoms: LABS: No results found for: TESTOST No results found for: TESTFREE No results found for: PSA No results found for: HCT No results found for: PSA No results found for: CREAT . MEDICATIONS: No prescriptions on file. PAST MEDICAL HISTORY: History reviewed. No pertinent past medical history. PAST SURGICAL HISTORY: History reviewed. No pertinent surgical history. FAMILY HISTORY: No family history on file. SOCIAL HISTORY: Social Connections: Not on file REVIEW OF SYSTEMS: GENERAL: No fever, chills, weight loss, or fatigue. ENMT: Negative CARDIOVASCULAR:NO CHEST PAIN, PALPITATIONS, ANKLE EDEMA RESPIRATORY: No chronic cough, wheezing, dyspnea, hemoptysis. GENITOURINARY: SEE HPI MUSCULOSKELETAL:NO CHRONIC BACK PAIN, ARTHRITIS, CHRONIC NECK PAIN SKIN: NO VARICOSE VEINS, RASH, ABNORMAL ITCHING HEME/LYMPH/IMMUNE:Negative for prolonged bleeding, bruising easily or swollen nodes NEUROLOGICAL: NO HEADACHES, NUMBNESS, SEIZURES, STROKE DIABETES: no All other systems reviewed and are negative PHYSICAL EXAMINATION: Blood pressure 130/74, pulse 96, temperature 36.4 C (97.5 F), temperature source Temporal, resp. rate 14, height 190.5 cm (6' 3 ), weight (!) 163.3 kg (360 lb), SpO2 98 %. GENERAL: WNL nutrition, no deformities, healthy appearing NEURO: Awake, alert and oriented x 3 and Normal gait PSYCH: No signs of depression, anxiety, or agitation ENMT (Ear, Nose, Mouth, Throat): No masses, adenopathy, icterus. Thyroid nonpalpable RESP: NL effort, no retractions or purse-lip breathing. CV: No extremity swelling, varices, edema, pallor, erythema GASTROINTESTINAL: Soft, nontender, nondistended, no masses. HERNIAS: None SKIN: No rash, lesions No palpable lymphadenopathy MUSCULOSKELETAL: Extremities normal. No deformities, edema, clubbing or skin discoloration. GENITOURINARY: MALE EXAM: 3 cm scrotal mass mobile and not infectious appearing Epididymis & testes: normal size, position, without masses Urethra & meatus: normal size & position w/o lesion or discharge Penis: circumcised, w/o plaques, lesions, masses, or deformities. PROBLEM LIST REVIEW: Yes LABS: Results for orders placed or performed in visit on 02/20/23 UA DIP, URINE (POC) Result Value Ref Range GLUCOSE UA (POCT) Negative Negative mg/dL BILIRUBIN UA (POCT) Negative Negative KETONE UA (POCT) Negative Negative mg/dL SPECIFIC GRAVITY UA (POCT) 1.015 1.005 - 1.030 HEMOGLOBIN/BLOOD UA (POCT) Negative Negative PH UA (POCT) 7.0 4.5 - 8.0 PROTEIN UA (POCT) Negative Negative mg/dL UROBILINOGEN UA (POCT) 0.2 Normal E.U./dL NITRITE UA (POCT) Negative Negative LEUKOCYTES UA (POCT) Negative Negative COLOR UA (POCT) Yellow CLARITY UA (POCT) Clear PROCEDURES: IMAGING: Scrotum US - Pending IMPRESSION/PLAN: 42 year old male with 1. Scrotal mass - ICD9: 608.89, ICD10: N50.89 > 3 cm solid scrotum mass x 10 yrs with original size pea like 10 yrs ago > Scrotum US I spent a total of 30 minutes on the date of the service which included preparing to see the patient, face to face patient care, completing clinical documentation, obtaining and/or reviewing separately obtained history, performing a medically appropriate examination, counseling and educating the patient/family/caregiver, ordering medications, tests, or procedures, and care coordination. AUDREY Rivers MT, PA-C Verified name and date of . CC Post Void Residual HPI: Rosario Barrett is a 42 year old male. The patient is here now for an appointment with AUDREY Rivers MT, PA-COV. Procedure: Explained procedure to patient and verbalizes understanding. Performed a PVR. Patient urinated and instructed to empty bladder as much as possible just prior to having PVR done using bladder ultrasound scanner. Results of scan: 0 mL The patient tolerated the procedure well. Plan: Appointment with Norma. documented in this encounter [facility] Note 02-18-2023 Telephone Encounter - Radha Delgado LPN - 02/18/2023 10:12 AM EDT Note Date & Type Note Facility 02-18-2023 Miscellaneous Notes Formattin g of this note might be different from the original. Called patient. Verified name and date of . Patient states he has not seen urologist or had any imagining done but had seen a family doctor years ago when much smaller in size and nothing done at that time. Radha Delgado LPN documented in this encounter [facility] Note 11-26-2022 Telephone Encounter - Laure Lange - 11/26/2022 1:54 PM EST Note Date & Type Note Facility 11-26-2022 Miscellaneous Notes Formattin g of this note might be different from the original. Lvm for referral appt. Referral from Dr Nicolas Combs of uncertain behavior Requested Dr Day. Laure Lange documented in this encounter [facility] Evaluation note Note Date & Type Note Facility documented in this encounter [facility] Reason for referral (narrative) Diagnostic Procedure Only (Routine) - Authorized Note Date & Type Note Facility Referral ID Status Reason Start Date Expiration Date Visits Requested Visits Authorized [id number] Authorized Auto-Generat ed Referral 02/20/2023 03/21/2024 1 1 [facility] Summary Purpose Family History No Family History Records FoundNo Family History Records Found Advance Directives No Advanced Directives Records FoundNo Advanced Directives Records Found Additional Source Comments Source Comments (unrecognize d section and content) In the event this informatio n is protected by the Federal Confidentiality of Alcohol and Drug Abuse Patient Records regulations: The Federal rules restrict any use of the information to criminally investigate or prosecute any alcohol or drug abuse patient.[facility] the event this information is protected by the Federal Confidentiality of Alcohol and Drug Abuse Patient Records regulations: The Federal rules restrict any use of the information to criminally investigate or prosecute any alcohol or drug abuse patient.[facility] the event this information is protected by the Federal Confidentiality of Alcohol and Drug Abuse Patient Records regulations: The Federal rules restrict any use of the information to criminally investigate or prosecute any alcohol or drug abuse patient.[facility] Reason for Visit (unrecogniz ed section and content) Reason Comments New Patient (unrecognized sect ion and content) No Status Records FoundNo Status Records Found INFORMATION SOURCE (unrecogn ized section and content) DATE CREATED AUTHOR AUTHOR'S RITU LOMAX 03/03/2023 [facility] FOR RECORDS PERTAINING TO PATIENTS WHO ARE OR HAVE BEEN ENROLLED IN A CHEMICAL DEPENDENCY/SUBSTANCEABUSE PROGRAM, SOME INFORMATION MAY BE OMITTED. This clinical summary was aggregated from multiple sources. Caution should be exercised in using it in the provision of clinical care. This summary normalizes information from multiple sources, and as a consequence, information in this document may materially change the coding, format and clinical context of patient data. In addition, data may be omitted in some cases. CLINICAL DECISIONS SHOULD BE BASED ON THE PRIMARY CLINICAL RECORDS. [facility] [employer] [facility]. provides no warranty or guarantee of the accuracy or completeness of information in this document.
== END | disposition home or self-care (01) ==
LOC: MTRAD 16:05
PROVIDERS: Referring Provider Podiatrist; Visit Provider Podiatrist
DX: M67.874 Other specified disorders of tendon, left ankle and foot (principal)
CPT/HCPCS: 73630

== ENCOUNTER → 2023-11-05 | Outpatient (CLI) | payer OTHER, SELFPAY ==
[2023-11-05 17:01] LABS: Absolute Lymphocyte Count 2.84 X10^3/uL (0.83-4.51); Absolute Neutrophil Count 5.3 X10^3/uL (2.0-7.7); Basophil# 0.05 X10^3/uL; Basophil% 0.6 % (0-1); Eosinophil# 0.12 X10^3/uL; Eosinophils% 1.3 % (0-5); Hematocrit 46.9 % (40-54); Lymphocyte # 2.84 X10^3/ul (0.83-4.51); Lymphocyte % 31.5 % (19-41); Mean Corpuscular Hgb 26.7 pg (27.0-32.0); Mean Corpuscular Volume 83.6 fL (80-94); Mean Platelet Vol. 9.2 fl (6.2-12.0); Monocyte# 0.67 X10^3/uL; Monocyte% 7.4 % (0-10); NRBC Flagged by Analyzer 0 % (0-5); Neutrophil # 5.31 X10^3/uL (2.7-7.7); Platelet Count 337 K/mm3 (150-450); RBC Distribution Width CV 13.4 % (11.6-14.6); RBC Distribution Width SD 40.6 fl (35.1-43.9); Red Blood Count 5.61 M/mm3 (4.6-6.2)
[2023-11-05 17:17] LABS: AST(SGOT) 26 U/L (15-37); Alanine Aminotransfer ALT/SGPT 49 U/L (16-61); Albumin, Serum 4.2 g/dL (3.2-5.0); Alkaline Phosphatase 103 U/L (45-117); Anion Gap 3 (5-15); BUN 15 mg/dL (7-18); Calcium,Total 9.7 mg/dL (8.5-10.1); Chloride 109 mmol/L (98-107); Cholesterol 168 mg/dL (200); Creatinine, Serum 0.94 mg/dL (0.70-1.30); EST Glomerular Filtration Rate 94 mL/min (>60); Est Glom Filt Rate - Afr Amer 114 mL/min (>60); Globulin 4.1 g/dL (2.2-4.2); Glucose 93 mg/dL (74-106); High Density Lipoprotein 42 mg/dL; Potassium 4.9 mmol/L (3.5-5.1); Protein, Total 8.3 g/dL (6.4-8.2); Sodium Level 141 mmol/L (136-145); Triglycerides 149 mg/dL; Very Low Density Lipoprotein 30 mg/dL (5-40)
== END | disposition home or self-care (01) ==
LOC: BIMLAB 16:09
PROVIDERS: PCP Physician Assistant; Referring Provider Physician Assistant; Visit Provider Physician Assistant
DX: Z00.00 Encounter for general adult medical examination without abnormal findings (principal)
CPT/HCPCS: 36415; 80053; 80061; 85025

== ENCOUNTER → 2023-11-11 | Outpatient (CLI) | payer OTHER, SELFPAY ==
--- OUTSIDE RECORDS SUMMARY | 2023-11-11 07:27 | XMS RPT_ITS | CCD ---
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 Name Role Phone Unavailable Primary Care Provider [...] 190.5 cm Norma Mckoy PA-C Work Phone: [facility] 02-20-2023 08:27-0400 Body temperature 97.5 [degF] Norma Mckoy PA-C Work Phone: [facility] 02-20-2023 08:27-0400 Body weight 163.29 kg Norma Mckoy PA-C Work Phone: [facility] 02-20-2023 08:27-0400 Diastolic blood pressure 74 mm[Hg] Norma Mckoy PA-C Work Phone: [facility] 02-20-2023 08:27-0400 Heart rate 96 /min Norma Mckoy PA-C Work Phone: [facility] 02-20-2023 08:27-0400 Respiratory rate 14 /min Norma Mckoy PA-C Work Phone: [facility] 02-20-2023 08:27-0400 SaO2% (BldA) [Mass fraction] 98 % Norma Mckoy PA-C Work Phone: [facility] 02-20-2023 08:27-0400 Systolic blood pressure 130 mm[Hg] Norma Mckoy PA-C Work Phone: [facility] Encounters Encounter Date Encounter Type Care Provider Facility Start: 02-24-2023 End: 02-24-2023 ambulatory NORMA MCKOY Facility:[facility] Start: 02-20-2023 End: 02-21-2023 ambulatory NORMA MCKOY Facility:[facility] Start: 02-20-2023 End: 02-20-2023 Patient encounter procedure Norma Mckoy PA-C Work Phone: Urology Procedures Date Procedure Procedure Detail Performing Clinician Start: 02-20-2023 Urnls dip stick/tabl et rgnt auto w/o microscopy Norma Mckoy PA-C Work Phone: Plan of Treatment Date Care Activity Detail Author Start: 05-22-2023 Influenza vaccination INFLUENZ A (Season Ended) [facility] Start: 02-20-2023 End: 03-21-2024 Us scrotum & contents US SCROTUM AND CONTENTS Radiology Routine Scrotal mass Expected: 02/20/2023 (Approximate), Expires: 03/21/2024 [facility] Work Phone: Payers Date Payer Category Payer Unknown NATALIAHUMBERTO BRAY PPO [id number] 2013-Present [phone] [facility] [id number] [place] [address] PPO [id number] 2013 Unknown [id number] Social History Date Type Detail Facility Start: 02-20-2023 Tobacco smoking stat us OKIS Never smoked tobacco [facility] Start: 05-14-2017 Alcohol intake Not Asked Alfonzo georges [facility] Start: 1980 Sex Assigned At Not on file [facility] Start: 02-20-2023 Tobacco use and exposure Melissa r smokeless tobacco user [facility] Start: 02-20-2023 Alcohol intake Ex-drinker (finding) [facility] Progress note 02-24-2023 Note Date & Type Note Facility 02-24-2023 Note HNO ID: [id number] Author: Zee Cowan RDMS Service: ? 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 Author Type: Physician Email Designer Type: Progress Notes Filed: 02/20/2023 9:00 AM Note Text: [facility] NEW PATIENT CLINIC NOTE [...] and care coordination. AUDREY Rivers MT, PA-C [facility] Progress note 02-20-2023 Note Date & Type Note Facility 02-20-2023 Note HNO ID: [id number] Author: Radha Delgado LPN Service: ? Author [...] the procedure well. Plan: Appointment with Norma. [facility] Instructions 02-20-2023 Patient Instructions Note Date & Type Note Facility 02-20-2023 Instructions Norma Mckoy PA-C - 02/20/2023 8:47 AM EDT > Scrotum US - Scrotum Mass documented in this encounter [facility] History of Present illness Narrative 02-20-2023 Norma Mckoy PA-C - 02/20/2023 8:36 AM EDTRadha Delgado LPN - 02/20/2023 8:23 AM EDT Note Date & Type Note Facility 02-20-2023 History of Presen t illness Narrative Images from the original note were not included. [facility] NEW PATIENT CLINIC NOTE [...] Appointment with Norma. documented in this encounter [facility] Note 02-18-2023 Telephone Encounter - Radha [...] Radha Delgado LPN documented in this encounter [facility] Note 11-26-2022 Telephone Encounter - Laure Lange - 11/26/2022 1:54 PM EST Note Date & Type Note Facility 11-26-2022 Miscellaneous Notes Formattin g of this note might be different from the original. Lvm for referral appt. Referral from Dr Nicolas Combs of uncertain behavior Requested Dr Day. Laure Lange documented in this encounter [facility] Evaluation note Note Date & Type Note Facility documented in this encounter [facility] Reason for referral (narrative) Diagnostic Procedure Only (Routine) - Authorized Note Date & Type Note Facility Referral ID Status Reason Start Date Expiration Date Visits Requested Visits Authorized [id number] Authorized Auto-Generat ed Referral 02/20/2023 03/21/2024 1 1 [facility] Summary Purpose Family History No Family [...] or prosecute any alcohol or drug abuse patient.[facility] the event this information is protected by the Federal Confidentiality of Alcohol and Drug Abuse Patient Records regulations: The Federal rules restrict any use of the information to criminally investigate or prosecute any alcohol or drug abuse patient.[facility] the event this information is protected by the Federal Confidentiality of Alcohol and Drug Abuse Patient Records regulations: The Federal rules restrict any use of the information to criminally investigate or prosecute any alcohol or drug abuse patient.[facility] Reason for Visit (unrecogniz ed section and content) Reason Comments New Patient (unrecognized sect ion and content) No Status Records FoundNo Status Records Found INFORMATION SOURCE (unrecogn ized section and content) DATE CREATED AUTHOR AUTHOR'S RITU LOMAX 03/03/2023 [facility] FOR RECORDS PERTAINING TO PATIENTS WHO ARE [...] BE BASED ON THE PRIMARY CLINICAL RECORDS. [facility]. provides no warranty or guarantee of the accuracy or completeness of information in this document.
--- NOTE | 2023-11-11 07:29 | US_ITS ---
STUDY: SCROTUM ULTRASOUND REASON FOR EXAM: Male, 43 years old. Testicular mass -- SMALL LEFT LUMP-INF TO LEFT TESTICLE TECHNIQUE: Ultrasound evaluation of the scrotum was performed with color Doppler and static carbajal-scale imaging. COMPARISON: None. FINDINGS: RIGHT TESTICLE INTRATESTICULAR: There is a normal size of the right testicle. The right testicle measures 4.7 cm x 2.9 cm x 2.8 cm. There is a homogenous echotexture. There is normal arterial and normal venous vascularity. There is no demonstrated right testicular mass or cyst. EXTRATESTICULAR: The epididymis is normal in size. The epididymis head measures 0.9 cm x 1.5 cm x 0.7 cm. There is normal vascularity of the epididymis. There is a well-defined cystic structure within the epididymis, without internal echoes, consistent with an epididymal cyst. The cyst measures 3 mm x 2 mm x 2 mm. There is a small hydrocele. There is no demonstrated varicocele. There is no demonstrated extratesticular mass or cyst. LEFT TESTICLE INTRATESTICULAR: There is a normal size of the left testicle. The left testicle measures 4.4 cm x 3.6 cm x 2.7 cm. There is a homogenous echotexture. There is normal arterial and normal venous vascularity. Inferior to the left testicle corresponding to the palpable abnormality, there is a 3 cm x 3.6 x 2.2 cm soft tissue mass with multiple cystic areas within it. EXTRATESTICULAR: The epididymis is normal in size. The epididymis head measures 0.8 cm x 1.4 cm x 1.3 cm. There is normal vascularity of the epididymis. There is a well-defined cystic structure within the epididymis, without internal echoes, consistent with an epididymal cyst. The cyst measures 4 mm x 4 mm x 5 mm. There is a small hydrocele. There are prominent extratesticular veins consistent with a varicocele. US/Testicular with Arterial Flow IMPRESSION: Small bilateral hydroceles and small bilateral epididymal cysts. Inferior to the left testicle, there is a 3 cm x 3.6 x 2.2 cm solid mass with cystic areas within it. Tissue diagnosis recommended. Electronically Signed: Juan Pablo Rich MD at 9:45 EST ,
== END | disposition home or self-care (01) ==
PROVIDERS: PCP Physician Assistant; Referring Provider Physician Assistant; Visit Provider Physician Assistant
DX: N50.89 Other specified disorders of the male genital organs (principal)
CPT/HCPCS: 76870; 93976

== ENCOUNTER 2023-11-19 16:30 | Outpatient (RCR) | payer OTHER, SELFPAY ==
--- NOTE | 2023-10-01 19:04 | HP.PTEVAL_ITS ---
Patient's Visit Information Visit Information Visit Information: ROSARIO BARRETT is a 43 year old M referred to Physical Therapy by Dr. Noreen Johns DPM with a diagnosis of L post tibialis tendonitis. Date of Evaluation: 10/01/23 Physical Therapist: Cy Layton, PT, ATC Visit Plan Frequency: 2x /Week Duration: 4 Weeks Plan: L ankle stretching and strengthening, mobs, balance and proprio, bike, and HeP Subjective Subjective: Pt reports his L foot has been sore for approximately 6 mos. Pt reports he was running at the time and sat down. Pt notes when he attempted to stand up, he experienced significant pain in his L arch. Pt reports he has had foot pain in the past, but always worked through his pain which may be what has lead up to this episode. Pt reports he has had x-rays which revealed no significant findings. Pt reports he needs to get an MRI, but has to try PT first. Pt denies any tingling or numbness in his L foot. Pt denies sleep difficulty at this time secondary to pain. Pt reports he has been wearing an arch support and [place] shoes to aid with his pain. Pt reports his goal is to get some exercises to his L foot to aid with keeping his flexibility and to prevent having to have surgery in the future. 0/10 pain while sitting here in the clinic, 5/10 pain at worst. 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 Pain L foot: Pain Intensity (Out of 10): 0 Pain Intensity Range: 5 Objective Objective: Neuro: B LE sensation is WNL to light touch. Palpation: Pt is very sore along the distribution of the post tibial tendon of L LE. No obvious deformity at this time ROM: R ankle DF= 0, PF= 60 degrees; L ankle DF= 0, PF= 60 MMT: R ankle DF= 43, PF= 34 #F; L ankle DF= 43, PF= 20 #F Gait: Pt ambulates with early pronation and hindfoot inversion in stance phase. Balance/Special Test Scores Lower Extremity Functional Score: 61 Goals Goal 1:: Decrease L foot pain x 50 % to aid with ambulation Goal Time Frame: 4-6 Weeks Goal 2:: Increase L ankle DF ROM x 10 degrees to aid with decreasing L ankle pain Goal Time Frame: 4-6 Weeks Goal 3:: Increase L ankle PF strength x 10 pounds to aid with stair negotiation Goal Time Frame: 4-6 Weeks Goal 4:: I with HEP Goal Time Frame: 4-6 Weeks Rehabilitation Potential Physical Therapy Diagnosis: Pt has L ankle pain, weakness, and limited ambulation secondary to L posterior tibial tendonitis Rehabilitation Potential: Good Anticipated Interventions Patient/Client Instruction: Educate patient on: Condition and Plan of Care For the Purpose of:: To improve self management Therapeutic Exercise to Include: Strength training, Endurance training, Postural training, Flexibilty training, Passive ROM and Active ROM For the Purpose of:: To decrease pain, To increase ROM and To improve muscle performance and motor function Cryotherapy (ice pack, ice massage): Yes For the Purpose of:: To decrease pain Text: Thank you for the opportunity to evaluate your patient. For Medicare and Medicare HMO plans, please review the plan of care and approve it. It will need to be FAXED BACK to us at [phone] for Medicare purposes. For Medicare only, by signing this I certify the plan of care. Please let me know if there are questions or concerns regarding this plan of care. Physician Signature: Date:
--- NOTE | 2023-11-19 17:06 | HP.PTDCSUM ---
Discharge Summary D/C summary: It has been my pleasure to treat ROSARIO BARRETT referred by Dr. Noreen Johns, DPM, with the diagnosis of L post tibialis tendonitis for a total of 8 visit(s). Discharge Date: Please see the following information for a summary of their discharge status. Subjective Subjective: Pt reports he has made some gains at this time. Pain L foot: Pain Intensity (Out of 10): 0 Overall Improvement % Improvement: 50 Objective Objective/Function: L foot pain has been 0/10 for the past week L ankle PF MMT 45 #F L ankle DF ROM 10 degrees Pt is I with HEP Goals Goal 1:: Decrease L foot pain x 50 % to aid with ambulation Goal Progress: Goal Met Goal 2:: Increase L ankle DF ROM x 10 degrees to aid with decreasing L ankle pain Goal Progress: Goal Met Goal 3:: Increase L ankle PF strength x 10 pounds to aid with stair negotiation Goal Progress: Goal Met Goal 4:: I with HEP Goal Progress: Goal Met Plan Plan: Discharge to HEP D/C Information d/c sentence: If there are questions or concerns regarding this patient's physical therapy, please feel free to call me at [phone]. Thank you for the referral of this patient. Sincerely, Cy Layton, PT, ATC Balance/Gait/Functional tests Balance/Special Test Scores Lower Extremity Functional Score: 71 Improvement % Improvement: 50
== END 2023-11-19 19:00 | disposition home or self-care (01) ==
LOC: PT 16:30
PROVIDERS: Referring Provider Podiatrist; Visit Provider Podiatrist
DX: M67.874 Other specified disorders of tendon, left ankle and foot (principal)
CPT/HCPCS: 97110; 97161

== ENCOUNTER → 2024-02-08 | Outpatient (CLI) | payer OTHER, SELFPAY ==
--- NOTE | 2024-02-05 11:00 | MASS_PTH ---
PATIENT: ROSARIO BARRETT LOC: [facility] U#:[id number] AGE/SX: 43/M ROOM: RE02/08/[address]: Dr. Montana Yousif MD : 1980 BED: DIS: 02/08/2024 SPEC #: [id number] RECD: 02/09/24 10:29 STATUS: BECCA REDari #: [id number] KRISTI: 02/05/24 11:[address]: Montana Yousif DEPT: SURGICAL PATHOLOGY RECD BY: Irene Richards ENTERED: 02/09/24 10:30 SP TYPE: Mass OTHR DR: ROD Strickland Tissues: Scrotum, NOS Procedures: Surgery Specimen Level IV HEADER OPERATION: Removal of scrotal mass PRE-OP DIAGNOSIS: Benign neoplasm of scrotum TISSUE SUBMITTED: Scrotal mass MICROSCOPIC DIAGNOSIS Scrotal mass, excision: Epidermal inclusion cyst with associated reparative and reactive change. Mild chronic inflammation. AM/mr 02/10/2024 MICROSCOPIC DESCRIPTION Slides are reviewed. GROSS DESCRIPTION Received in fixative is one container labeled with the patient's name and designated Scrotal mass. The specimen consists of a soft ovoid fragment of white-padgett soft cystic mass measuring 4.0 x 3.2 x 3.0cm. Serial sections reveal applesauce like material. The specimen consists of a cyst wall that has a lining that averages 0.1cm in thickness. Grip Wrapper sections are submitted in one cassette. AM/mr 02/09/24 TC:5 CPT:66859
== END | disposition home or self-care (01) ==
LOC: LABSPEC 15:30
PROVIDERS: PCP Physician Assistant; Referring Provider Urology; Visit Provider Urology
DX: D29.4 Benign neoplasm of scrotum (principal)
CPT/HCPCS: 88305

== ENCOUNTER 2024-09-15 10:18 | Emergency (ER) | payer OTHER, SELFPAY ==
[2024-09-15 10:18] VITALS: BP 161/91; PULSE 94; RESP 14; TEMP 36.6; O2SAT 98; BMI 48.6
--- NOTE | 2024-09-15 11:26 | RAD_ITS ---
INDICATION: injury EXAMINATION/TECHNIQUE: X-RAY - LEFT XR Shoulder Min 2 Views 5 VIEWS COMPARISON: Chest radiograph dated August 10, 2023 FINDINGS: SOFT TISSUES: No soft tissue swelling or gas. No radiopaque foreign body. BONES/JOINTS: No acute fracture or subluxation.. Normal alignment. Preservation of the joint space.. No sclerotic or destructive changes observed. RAD/Shoulder min 2 Views IMPRESSION: No acute osseous injury. Electronically Signed: Emma Vance MD at 12:29 EST ,
--- NOTE | 2024-09-15 11:44 | EX.ED.UPPERE ---
HPI History of Present Illness Chief Complaint: Upper Extremity Injury Informant: patient and spouse/S.O. Narrative Narrative: 44-year-old male presenting to the emergency room with left shoulder pain. Patient states that yesterday he was walking up a muddy hill when he slipped and fell landing on his left elbow causing pain in the anterior left shoulder. He denies any other injuries. Patient notes today he has limited range of motion. He notes the elbow and the hand feel fine. PFSH PFSH Home Medications ?Medication ?Instructions ?Recorded ?Last Taken ?Type multivitamin (Daily Multi-Vitamin 1 tab PO DAILY 08/10/23 08/10/23 History tablet) glucosamine-chondroitin 2,000 30 ml PO DAILY 11/05/23 Unknown History mg-1,200 mg/30 mL oral liquid Allergy/AdvReac Type Severity Reaction Status Date / Time No Known Allergies Allergy Verified 09/15/24 10:18 Family History Other Colon cancer Diabetes Hypertension Surgical History History of cholecystectomy Social History Smoking Status: Unknown if ever smoked Electronic Cigarette Use: not used second hand exposure: No alcohol intake: current alcohol intake frequency: holidays/special occasions only substance use type: does not use ROS ROS ED Constitutional Constitutional ED: Denies chills, fever(s) or weight loss Eyes Eyes: Denies change in vision or diplopia ENT ENT ED: Denies ear pain, rhinorrhea or sore throat Cardiovascular Cardiovascular: Denies chest pain, orthopnea, palpitations or racing heartbeat Respiratory/Chest Respiratory/Chest: Denies cough, dyspnea or orthopnea Gastrointestinal Gastrointestinal: Denies abdominal pain, diarrhea, nausea or vomiting Genitourinary Genitourinary ED: Denies dysuria, hematuria or urinary frequency Musculoskeletal Musculoskeletal: Reports other Details: See history of present illness ; Denies arthralgias, back pain, myalgias or neck pain Integumentary Denies abscess or rash Neurologic Neurologic: Denies headache(s) or weakness Psychiatric Psychiatric: Denies anxiety, depression, suicidal ideation or suicidal thoughts Endocrine Endocrinology: Denies polydipsia, polyphagia or polyuria Allergic/Immunologic Allergic/Immunologic ED: Denies mouth swelling, tongue swelling or urticaria EXAM Physical Exam Const Vital Signs: 09/15/24 10:18 Temperature 98 F Temperature Source Temporal Pulse Rate 94 Respiratory Rate 14 Blood Pressure 161/91 H Blood Pressure Mean 114 Pulse Ox 98 Oxygen Delivery Method Room Air Positive well nourished, well developed and obese General Appearance ED: well developed and NAD Nutritional Appearance: obese HEENT Reports normocephalic, head/scalp atraumatic and moist mucous membranes Eyes PERRL and EOMs intact bilaterally Neck no lymphadenopathy, supple and no JVD Resp normal respiratory effort and clear to auscultation bilaterally Cardio regular rate, regular rhythm and no murmurs GI normal to inspection, nondistended, normoactive bowel sounds and non-tender Palpation: soft Back/Spine no CVA tenderness and normal ROM Extremity Extremity Narrative: Left shoulder pain particularly anterior. There is no obvious palpable dislocation or deformity. Neurovascular intact distally. There is no clavicle tenderness. No AC tenderness. General Extremety ED: Negative for edema General Extremity: Negative for edema Neuro oriented x3 and CN's II-XII intact bilaterally Sensorium / Orientation: alert Motor Exam: strength 5/5 throughout Psych mental status grossly normal Mood & Affect: Negative for depressed or tearful Skin no rashes or lesions noted and no wounds MDM MDM MDM Narrative Medical decision making narrative: Differential diagnosis includes fracture subluxation dislocation sprain strain rotator cuff injury neurovascular injury labral tear My independent interpretation of the plain films of the left shoulder is no acute fracture. Radiology concurs. Clinically we are going to treat this as a sprain. He understands that if he is not improving he should follow-up with orthopedics. We talked about techniques to reduce frozen shoulder as well as icing and anti-inflammatories. He notes understanding the plan is comfortable with it. He remains neurovascularly intact distal to the injury. History & Record Review Discussion w/independent historian: Patient and Significant other Discharge Plan Triage Chief Complaint: Upper Extremity Injury ED Provider: Faustino Simpson Dx/Rx/DC Orders Clinical Impression: Shoulder sprain, Fall Instructions: ED Shoulder Sprain Prescriptions: No Action glucosamine-chondroitin 2,000-1,200 mg/30 mL liquid 30 ml PO DAILY Rx Instructions: give with food (meal/snack) multivitamin [Daily Multi-Vitamin] Tablet 1 tab PO DAILY Primary Care Provider: George Ferraro Referrals: Polo Mari MD [Med Staff - Active Staff] - As Needed (for orthopedics) George Ferraro, PA [Primary Care Provider] - Print Language: Mongolian Disposition Disposition: Home, Self Care Discharge Date/Time: 09/15/24 12:51
[2024-09-15 12:45] VITALS: BP 121/73; PULSE 64; RESP 15; TEMP 36.9; O2SAT 96
== END 2024-09-15 12:51 | disposition home or self-care (01) ==
PROVIDERS: Emergency Provider Emergency Medicine; PCP Physician Assistant; Visit Provider Emergency Medicine
DX: S43.402A Unspecified sprain of left shoulder joint, initial encounter (principal); W01.0XXA Fall on same level from slipping, tripping and stumbling without subsequent striking against object, initial encounter; E66.9 Obesity, unspecified
CPT/HCPCS: 73030; 99282